=== PATIENT | female | born 1935 | race Caucasian/White ===

== ENCOUNTER 2017-07-02 08:33 | Inpatient (IN) | payer MEDICARE ==
[~2017-07-02 08:33] MED LIST: MORPHINE SULFATE 15 MG TABLET.SA PO PRN; ROPIVACAINE HCL/PF 100 MG, KETOROLAC TROMETHAMINE 30 MG, EPINEPHrine 0.2 MG in NORMAL S... IJ PRN; TRANEXAMIC ACID 1,000 MG in NORMAL SALINE 100 ML IV PRN; ceFAZolin SODIUM 1 GM VIAL IV PRN
[2017-07-02] MEDS: RINGER'S SOLUTION,LACTATED 1,000 ML IV PRN ×2 (11:00→11:55)
[2017-07-02] MEDS ORDERED: RINGER'S SOLUTION,LACTATED 1,000 ML IV ONE (13:10)
--- NOTE | 2017-07-02 14:13 | POSTOP NO ---
Date of Surgery: 07/02/17 Patient Tolerated the Procedure: Well Post Operative Diagnosis/Procedures: Cafeteria Director: Denis Michael PA-C Post-operative Diagnosis: Left knee flexion contracture with limited range of motion and arthrosis Finding: Above Procedure: Left total knee arthroplasty Estimated Blood Loss: Minimal Specimens: Bone for disposal
[2017-07-02] MEDS ORDERED: ZOLPIDEM TARTRATE 5 MG TABLET PO PRN (14:19)
[2017-07-02] MEDS ORDERED: ONDANSETRON HCL/PF 2 MG/ML VIAL IV PRN (14:19)
[2017-07-02] MEDS ORDERED: PROMETHAZINE HCL 5 MG in DEXTROSE 5 % IN WATER 50 ML IV PRN ×2 (14:19)
[2017-07-02] MEDS ORDERED: HYDROmorphone HCL 2 MG/ML VIAL IV PRN (14:19)
[2017-07-02] MEDS ORDERED: diphenhydrAMINE HCL 50 MG/ML VIAL IV PRN (14:19)
[2017-07-02] MEDS ORDERED: MAGNESIUM HYDROXIDE 30 ML UDC PO PRN (14:19)
[2017-07-02] MEDS ORDERED: MAG HYDROX/ALUMINUM HYD/SIMETH 30 ML UDC PO PRN (14:19)
[2017-07-02] MEDS ORDERED: ACETAMINOPHEN 500 MG TABLET PO PRN (14:19)
--- NOTE | 2017-07-02 14:19 | OR ---
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 Membership Counselor: Denis Michael PA-C Anesthesia: Spinal with regional block and local periarticular joint injection. Complications: None Specimens: Bone for disposal. Estimated blood loss: Minimal. Tourniquet time: 95 Minutes at 325 millimeters of mercury. Retained implants: Depuy Attune size 6 narrow left lugged cemented posterior stabilized femoral component. Size 5 fixed-bearing cemented tibial platform. 6 by 5 millimeter posterior stabilized cross-linked tibial insert. 41 millimeter medialized patella button. Indications: Mrs. Muir is a 81-year-old female who has significant valgus deformity with flexion contracture and severely limited flexion and advanced arthrosis. This patient was followed in my clinic for period of time with significant complaints of left knee pain consistent with arthritic changes. She had failed conservative measures including, but not limited to, activity modification, passage of time, medications, and other conservative measures. Patient wished to proceed with surgical treatment. The risks, benefits, and alternatives were discussed in clinic. The risks of , blood clots, bleeding, infection, nerve/tendon blood vessel/ injury, malposition of components, intraoperative fracture, postoperative limited range of motion, persistent pain, failure of components, and need for additional procedures. Patient wished to proceed consent was obtained after answering all questions. Procedure: After marking the correct extremity on the floor, the patient was taken to the operating room. A timeout was performed. IV antibiotics consisting of Ancef were administered prior to the procedure. A regional followed by spinal anesthetic was induced by anesthesia, per my request, on the operative table with all bony prominences well-padded. Holt catheter was placed, and a bump was placed under the operative side buttock. SCDs and PAPI hose were utilized on the nonoperative leg. A well-padded tourniquet was applied to the operative thigh. The operative leg was then pre-scrubbed with alcohzulema stokes prepped, and draped in a standard sterile fashion. After exsanguinating the extremity with an Esmarch bandage, the tourniquet was inflated. After marking out the anterior knee for standard incision centered over the patella, the skin was incised and dissected down to the joint retinaculum. The joint retinaculum was marked out as well as the horizontal axis of the patella, and a standard medial parapatellar arthrotomy was then made. The most proximal aspect of the quadriceps tendon and the patella tendon insertion were protected from release. A partial synovectomy was performed as well as a resection of the infrapatellar fat pad. The distal femoral fat pad proximal to the trochlea was also resected using cautery. The soft tissues were elevated off the medial aspect of the proximal tibia using a Snowden elevator ensuring that we did not transect the medial collateral ligament. Upon initial evaluation range of motion was approximately 30 degrees to 70 degrees of flexion. She had noted valgus deformity and severely limited motion. There were signs of advanced arthrosis in the medial, lateral, and patellofemoral joint spaces. There were large marginal osteophytes which were removed with a rongeur. The knee was hyperflexed and the patella was tucked laterally. Protecting the surrounding soft tissues with Homans, an entry drill was placed down the femoral canal using Whitesides line for guidance into the entry point. The intramedullary femoral alignment afua was utilized in order to cut the distal femur in 5 degrees of valgus resecting 11 millimeters of bone but was subsequently recut up to a total of 13 mm distal resection. Next the distal femur was sized to a size 6. A posterior referencing guide was utilized to place the distal femoral cutting block in 3 degrees of external rotation. This was pinned into place. The rotation was confirmed both visually and based on anatomic landmarks. The 4 in 1 cutting jig of the appropriate size was utilized in order to make all bony cuts. The angle wing was used to ensure no notching. Retractors were utilized in order to protect surrounding soft tissues. This cut did not result in any excessive notching. We then cut the box centered over the distal femur. This allowed for resection of the anterior and posterior cruciate ligaments. I then turned my attention to the preparation of the tibia. Using an extra medullary tibial alignment afua, 4 millimeters of bone was resected off the medial articular surface. This was made perpendicular to the mechanical axis of the joint with the alignment afua centered over the ankle mortise. The alignment afua was checked and was noted to be parallel to the mechanical axis, centered over the medial one third of the tibial tubercle, paralleling the anterior surface of the tibia. We then turned our attention to the remaining meniscus and soft tissues. These were removed while protecting the surrounding ligaments and soft tissues. The marginal osteophytes off the anterior, posterior, medial, lateral aspects of the femur and tibia were removed. The tibia was sized out to a size 5. Next the tibia was drilled and punched in an externally rotated position. Next the trial femur and a series of tibial inserts were utilized in order to allow for significant increased extension and maximal flexion. At this point the extension gap was still significantly smaller than the flexion gap and thus we recut the femur resecting an additional 2 mm up to the aforementioned 13 mm distal cut. After this, it was found that a 5 millimeter insert gave the best range of motion and stability at multiple flexion points as well as at near full extension there was less than 2 mm of gapping both medially and laterally. The posterior capsular release as well as a transection of the popliteal tendon was performed. This resulted in a final extension of 10 short of full. There is minimal anterior translation with the knee at 90 degrees of flexion and no signs of being able to dislocate the knee. The patella was then prepared. The initial thickness was 23 millimeters. This was reamed down to 13 millimeters parallel to the anterior surface of the patella. It was sized out to a size 41 medialized patella button. This was then drilled and trialed. Without any medial restraint the patella tracked appropriately and did not sublux or dislocate. At this point, it was felt these were the appropriate sized implants, and all trials were removed. The standard periarticular joint injection consisting of ropivacaine, Toradol, and epinephrine were injected into the periarticular joint tissues. The bony surfaces were thoroughly irrigated with a pulsatile- suction saline irrigation device. A bone plug from the prior resected anterior chamfer cut was placed into the drill hole at the distal femur. The bony surfaces were then dried in preparation for placement of the implants. The cement was vacuum mixed per the showcase maker's instructions. The cement was placed on the dry bony surfaces and posterior aspect of the implants. The implants were impacted into place, removing all extruded cement. At this point anesthesia administered tranexamic acid per protocol intravenously. The knee was placed in extension with axial loading with the trial insert while the cement cured. Once the cement cured, all remaining extruded cement was removed. The knee was placed through a range of motion with the trial insert to ensure appropriate range of motion and stability. Final range of motion was approximately 10 to 120 degrees. The knee was again thoroughly irrigated with pulsatile saline lavage. The final polyethylene insert was then impacted into place ensuring no retained soft tissues. The remaining periarticular joint injection was injected. A medium Hemovac drain was placed exiting superior laterally. The knee was then placed over a triangle and the arthrotomy was closed with interrupted #1 Vicryl after thoroughly irrigating the joint. The deep and subcutaneous tissues were closed with interrupted 0 and 3-0 Vicryl respectively. Skin was closed with a running subcutaneous 3-0 Monocryl and Prineo Dermabond dressing. 4 x 4's, Sof-Rol, and a full leg Vikash wrap were applied. All sponge, needle, blade, and instrument counts were correct prior to closing the wounds. Postoperative condition: The patient was awoken and transferred to the postanesthesia care unit in stable condition. Plan is to be admitted to the inpatient medical/surgical floor postoperatively for 24 hours of IV antibiotics , physical therapy, occupational therapy, and medical comanagement. Patient will be weightbearing as tolerated with range of motion as tolerated. DVT prophylaxis will be with SCDs, PAPI hose, and pharmacological anticoagulation. Anticipated hospital stay is approximately 1-3 days.
--- NOTE | 2017-07-02 14:41 | OR ---
Anesthesia Procedure Note - Anesthesia Procedure Note Date of Service: 07/02/17 Narrative: Vital Signs - Last Taken Temp 36.7 C 07/02/17 14:30 Pulse 84 07/02/17 14:35 Resp 16 07/02/17 14:35 BP 123/60 07/02/17 14:35 Pulse Ox 94 07/02/17 14:35 O2 Oxygen Delivery Method Nasal Cannula 07/02/17 14:38 ANESTHESIA PROCEDURE NOTE Date of Procedure: 07/02/2017 Time of procedure: 12:00.. Performed by: DIANE Shi CRNA, MSN [employer] Attendant: Marta Wolf RN. Preprocedure diagnosis: Post left total knee arthroplasty pain relief. Post procedure diagnosis: Same. Procedure: Left Adductor Canal Block. Indications: Post left total knee arthroplasty pain relief. Findings: See below. Details of the procedure: The patient was brought to OR #4 and placed in supine position. The patient's left femoral area to the knee was prepped with chlorhexidine and using ultrasound guidance the left femoral artery and nerve was identified and then followed to the level of the adductor canal. Lidocaine 1% was infiltrated to the skin of the intended injection site. Under ultrasound guidance the saphenous nerve was approached with visualization of a 2 inch shielded block needle. Once saphenous nerve was identified with proximity to the needle tip, the saphenous nerve was surrounded with 20 mL bupivacaine 0.25% with 1-200,000 epinephrine. Please see radiology/ultrasound report for details and retained images of the procedure. EBL: 0 Fluids: N/A. Specimen: N/A. Post procedure condition: The patient tolerated the procedure well. No complications were noted. Thank you for this consultation. Pj Burk CRNA, [employer], MSN
[2017-07-02] MEDS: KETOROLAC TROMETHAMINE 15 MG/ML VIAL IV SCH ×2 (15:18→21:23)
[2017-07-02] MEDS: DEXTROSE 5%-LACTATED RINGERS 1,000 ML IV PRN (15:19)
[2017-07-02] MEDS: ceFAZolin SODIUM 1 GM in DEXTROSE 5 % IN WATER 50 ML IV SCH ×4 (15:19→21:25)
[2017-07-02] MEDS: ATORVASTATIN CALCIUM 40 MG TABLET PO SCH (21:23)
[2017-07-02] MEDS: CALCIUM CARBONATE 500 MG TAB.CHEW PO SCH (21:24)
[2017-07-02] MEDS: SENNOSIDES/DOCUSATE SODIUM 1 TAB TABLET PO SCH (21:24)
[2017-07-02] MEDS: OMEGA-3 FATTY ACIDS 1 CAP CAPSULE PO SCH (21:24)
[2017-07-03] MEDS: DEXTROSE 5%-LACTATED RINGERS 1,000 ML IV PRN (00:42)
[2017-07-03] MEDS: KETOROLAC TROMETHAMINE 15 MG/ML VIAL IV SCH ×4 (02:37→20:14)
[2017-07-03] MEDS: ceFAZolin SODIUM 1 GM in DEXTROSE 5 % IN WATER 50 ML IV SCH ×2 (03:54)
[2017-07-03 05:55] LABS: Hematocrit 34.8 % (37.0-47.0); Hemoglobin 11.1 gm/dL (12.5-16.0); Mean Cell Volume 95.1 fl (78-100); Mean Corpuscular Hemoglobin 30.3 pg (27-31); Mean Corpuscular Hgb Conc 31.9 g/dl (32-36); Mean Platelet Volume 9.5 fl (6.0-9.5); Platelet Count 149 K/mm3 (150-450); Red Blood Count 3.66 M/mm3 (4.2-5.4); Red Cell Distribution Width 13.3 % (11.5-14.0); White Blood Count 7.6 K/mm3 (4.0-10.5)
[2017-07-03 06:06] LABS: Anion Gap 6.5 mmol/L (6.8-13.8); Calcium * 8.6 mg/dL (7.9-10.9); Carbon Dioxide 33.5 mmol/L (24-32.6); Estimated Creat Clear 58.4
[2017-07-03] MEDS ORDERED: LEVOTHYROXINE SODIUM 112 MCG TABLET PO SCH (07:00)
[2017-07-03] MEDS: oxyCODONE HCL/ACETAMINOPHEN 1 TAB TABLET PO PRN (07:16)
[2017-07-03] MEDS: HYDROCHLOROTHIAZIDE 25 MG TABLET PO SCH (08:34)
[2017-07-03] MEDS: CALCIUM CARBONATE 500 MG TAB.CHEW PO SCH ×2 (08:34→20:15)
[2017-07-03] MEDS: FLUoxetine HCL 20 MG CAPSULE PO SCH (08:34)
[2017-07-03] MEDS: ENALAPRIL MALEATE 5 MG TABLET PO SCH (08:34)
[2017-07-03] MEDS: MULTIVITAMINS 1 CAP CAPSULE PO SCH (08:34)
[2017-07-03] MEDS: OMEGA-3 FATTY ACIDS 1 CAP CAPSULE PO SCH ×2 (08:34→20:14)
[2017-07-03] MEDS: LORazepam 0.5 MG TABLET PO SCH (12:27)
[2017-07-03] MEDS: ENOXAPARIN SODIUM 40 MG/0.4 ML SYRG SC SCH (12:29)
--- NOTE | 2017-07-03 17:02 | PN ---
Subjective - Date and Time Seen Date: 07/03/17 Subjective Narrative: Subjective: Reports minimal pain. Was able to walking the hernandez with therapy. Pain is well-controlled. Voiding without any complications. Tolerating by mouth intake. Denies any nausea or vomiting. Denies calf pain. Slept well. Physical exam: Alert and oriented to person, place and time Left lower Extremity: Palpable dorsalis pedis pulse. Sensation grossly intact to light touch. Dressings clean and dry. Able to flex and extend ankle and toes. No excessive drainage. Calf and thigh are soft and nontender. Assessment: Postop day 1 status post left total knee arthroplasty. Plan: Due to the need for pain control, post-operative limited mobility, protection of the surgical site and joint, monitoring of the wound, and the management of chronic medical conditions, she requires continued inpatient care. Continue with physical and occupational therapy weightbearing as tolerated. Continue with anticoagulation. 24 hours postoperative prophylactic antibiotics. Pain control with goal to rely on oral medications. Continue bowel regimen. Will need 6 weeks with walker or assitive device to protect joint while ambulating during the recovery process. Discharge planning - goal was to discharge home tomorrow. Discontinue drain and Holt catheter. Continue progressive therapeutical doing stairs Objective - Vitals Vitals: Last Vital Signs Temp 37.1 C 07/03/17 14:31 Pulse 71 07/03/17 14:31 Resp 18 07/03/17 14:31 BP 111/55 07/03/17 14:31 Pulse Ox 91 07/03/17 14:31 - Abnormal Lab Findings Abnormal Lab Findings: Abnormal Lab Results 07/03/17 07/03/17 Range/Units 05:47 05:47 RBC 3.66 L (4.2-5.4) M/mm3 Hgb 11.1 L (12.5-16.0) gm/dL Hct 34.8 L (37.0-47.0) % MCHC 31.9 L (32-36) g/dl Plt Count 149 L (150-450) K/mm3 Carbon Dioxide 33.5 H (24-32.6) mmol/L Anion Gap 6.5 L (6.8-13.8) mmol/L BUN/Creatinine Ratio 39.0 H (9.0-21.6) Random Glucose 157 H (70-110) mg/dL Cauti Physician Documentation - Urinary Catheter Management Urethral (Holt) Date of Insertion: 07/02/17 Time of Insertion: 12:25 Assessment/Plan - Problems/Diagnosis (1) Acute blood loss anemia Problem: Acute (2) Status post total left knee replacement Problem: Acute (3) Anxiety Problem: Chronic (4) COPD (chronic obstructive pulmonary disease) Problem: Chronic (5) Diabetes mellitus type 2 in nonobese Problem: Chronic (6) Hyperlipidemia Problem: Chronic (7) Hypertension Problem: Chronic (8) Hypothyroid Problem: Chronic (9) Varicose veins of both lower extremities Problem: Chronic
[2017-07-03] MEDS: SENNOSIDES/DOCUSATE SODIUM 1 TAB TABLET PO SCH (20:14)
[2017-07-03] MEDS: ATORVASTATIN CALCIUM 40 MG TABLET PO SCH (20:14)
[2017-07-04] MEDS: KETOROLAC TROMETHAMINE 15 MG/ML VIAL IV SCH ×2 (03:09→09:21)
[2017-07-04] MEDS ORDERED: LEVOTHYROXINE SODIUM 125 MCG TABLET PO SCH (07:00)
[2017-07-04] MEDS: ENALAPRIL MALEATE 5 MG TABLET PO SCH (10:09)
[2017-07-04] MEDS: OMEGA-3 FATTY ACIDS 1 CAP CAPSULE PO SCH (10:09)
[2017-07-04] MEDS: HYDROCHLOROTHIAZIDE 25 MG TABLET PO SCH (10:10)
[2017-07-04] MEDS: CALCIUM CARBONATE 500 MG TAB.CHEW PO SCH (10:11)
[2017-07-04] MEDS: FLUoxetine HCL 20 MG CAPSULE PO SCH (10:11)
[2017-07-04] MEDS: MULTIVITAMINS 1 CAP CAPSULE PO SCH (10:11)
[2017-07-04 10:45] VITALS: BP 135/79
[2017-07-04] MEDS: oxyCODONE HCL/ACETAMINOPHEN 1 TAB TABLET PO PRN (12:07)
[2017-07-04] MEDS: LORazepam 0.5 MG TABLET PO SCH (12:07)
--- NOTE | 2017-07-04 13:00 | DS ---
(1) Acute blood loss anemia Problem: Acute (2) Status post total left knee replacement Problem: Acute (3) Anxiety Problem: Chronic (4) COPD (chronic obstructive pulmonary disease) Problem: Chronic (5) Diabetes mellitus type 2 in nonobese Problem: Chronic (6) Hyperlipidemia Problem: Chronic (7) Hypertension Problem: Chronic (8) Hypothyroid Problem: Chronic (9) Varicose veins of both lower extremities Problem: Chronic Description of Stay: Mrs. Muir was admitted to the floor after undergoing left total knee arthroplasty. Tolerated this well. Was admitted to the floor postoperatively for 24 hours of IV antibiotics, pain control, medical comanagement, and occupational and physical therapy. OT and PT were consulted to assist with activities of daily living and ambulation. Was made weightbearing as tolerated with range of motion as tolerated. Pain was initially controlled with IV regimen. This was transitioned to oral once tolerating a by mouth intake. Was resumed on home diet and medications. Had a Holt catheter inserted and the operating room which was discontinued on postoperative day 1. A drain was placed intraoperatively into the knee which was discontinued on postoperative day 1. Lovenox SCD and PAPI hose were utilized for DVT prophylaxis. Vital signs remained stable to the hospital course. Serial labs were obtained which showed a hemoglobin of 11.1 grams. BMP was reviewed and was stable. Physical examination throughout the hospital course showed an extremity that had sensation that was intact to light touch, palpable pulses, a benign wound, motor intact to the toes, ankle, and knee. Knee range of motion was approximately 10 degrees to 60 degrees. Once an oral pain regimen was tolerated and physical therapy goals were met, it was felt that they were stable for discharge to home. Instructions: Continue with weightbearing as tolerated and range of motion as tolerated. It is okay to shower and get the wound wet as long as there is no drainage from the wound. Do not bathe or soak the wound. If there is any drainage from the wound keep the wound clean and dry and cover with dry gauze and tape. Change every 2-3 days as needed if there is any drainage. Cover wound while showering if there is any drainage. Continue with physical therapy. Resume home diet. Report any fever over 101.5 Fahrenheit, uncontrolled pain, increased drainage, foul odor of drainage, new or increased calf pain or shortness of breath, or any other significant complaints. A 325mg dialy aspirin will be started after finishing anticoagulation if not allergic. Continue with PAPI hose on the operative extremity until instructed otherwise. No driving until instructed otherwise. Follow up in approximately 10-14 days. Procedures Performed: see notes below List Procedures: Left total knee arthroplasty Discharge Disposition: Home self care Disposition: Home self-care Condition: Good Discharge Activity: Activity as tolerated, Weight bearing Discharge Diet: General/regular food Additional Patient Instructions (free text): Out patient Physical Therapy at [facility] rehab on SundayAugust 03 at 2:00pm. Follow up with Dr. Meyer on SundayJuly 17 at 9:30am. Prescriptions (Any new or edited meds): Enoxaparin Sodium [Lovenox] 40 mg SC Q24H #7 disp.syrin oxyCODONE HCL/ACETAMINOPHEN [Percocet 5 MG/325 MG] 2 tab PO Q4H PRN #60 tablet PRN Reason: Moderate Pain (Pain Scale 4-6) Complete Home Medications List: Complete Home Medication List: Atorvastatin Calcium [Lipitor] 40 mg PO HS 07/15/12 Hydrochlorothiazide [Hydrodiuril] 25 mg PO DAILY 07/15/12 Levothyroxine Sodium [Synthroid] 112 mcg PO Q2D 07/15/12 Levothyroxine Sodium [Synthroid] 125 mcg PO Q2D 07/15/12 Benazepril HCl 10 mg PO DAILY 06/26/17 Calcium Carbonate 600 mg PO BID 06/26/17 FLUoxetine HCL [Prozac] 20 mg PO DAILY 06/26/17 LORazepam [Ativan] 0.5 mg PO DAILY@1200 06/26/17 Multivitamins [Multivitamin Aakash] 1 cap PO DAILY 06/26/17 Romney-3 Fatty Acids/Fish Oil [Fish Oil 1,000 mg Capsule] 1 each PO BID 06/26/17 Enoxaparin Sodium [Lovenox] 40 mg SC Q24H #7 disp.syrin 07/04/17 Sennosides/Docusate Sodium [Senokot-S] 2 tab PO HS tablet 07/04/17 oxyCODONE HCL/ACETAMINOPHEN [Percocet 5 MG/325 MG] 2 tab PO Q4H PRN #60 tablet 07/04/17 Amb Orders for Discharge: PT Evaluation and Treatment Facility: [facility], Location: Rehabilitation Services
[2017-07-04] MEDS: ENOXAPARIN SODIUM 40 MG/0.4 ML SYRG SC SCH (14:14)
--- NOTE | 2017-07-05 19:49 | PN ---
Subjective - Date and Time Seen Date: 07/04/17 Time: 12:15 Subjective Narrative: Patient seen and examined at bedside. She is all dressed and ready to leave and she states she is feeling well and ready to go home. Objective - Review of Systems Generalized/Overall Review: Reports: No Symptoms Reported EENTM: Reports: No Symptoms Reported Respiratory: Reports: No Symptoms Reported. Denies: Shortness of Breath Cardiac: Reports: No Symptoms Reported Abdominal: Reports: No Symptoms Reported Genitourinary Symptoms: Reports: No Symptoms Reported Musculoskeletal Complaints: Reports: Joint Pain Neurological: Reports: No Symptoms Reported Skin: Reports: No Symptoms Reported Endocrine: Reports: No Symptoms Reported Misc: All systems neg except as marked - Vitals Vitals: Last Vital Signs Temp 36.8 C 07/04/17 10:43 Pulse 78 07/04/17 10:43 Resp 16 07/04/17 10:43 BP 135/79 07/04/17 10:43 Pulse Ox 92 07/04/17 12:35 - Exam Constitutional: Present: Alert, Oriented x3, Cooperative, Well developed, Well nourished, No distress ENT Exam: Present: moist mucous membranes Respiratory: Present: decreased breath sounds Cardiovascular/Chest: Present: regular rate, rhythm, systolic murmur, edema - Trace edema in right lower extremity with chronic varicosities and chronic venous stasis, trace to +1 edema in left lower extremity with post-op surgical dressing and compression stocking in place Abdomen: Present: soft, nontender, nondistended Extremity: Present: lower extremity edema - Trace edema in right lower extremity with chronic varicosities and chronic venous stasis, trace to +1 edema in left lower extremity with post-op surgical dressing and compression stocking in place Skin Exam: Present: other - Chronic venous stasis dermatitis skin changes to bilateral lower extremities Neurologic: Present: alert Eye contact: Present: cooperative Thoughts: Present: normal thought pattern, no apparent hallucination Cauti Physician Documentation - Urinary Catheter Management Urethral (Holt) Date of Insertion: 07/02/17 Time of Insertion: 12:25 Assessment/Plan Plan Narrative: Patient stable for discharge home. She has underlying COPD and continues with daily tobacco use so it is quite likely her baseline oxygen saturation is around the upper 80s at rest and drops with ambulation. Continue post-op cares including VTE ppx and pain control per ortho. The patient was instructed to follow-up with her PCP, Dr. Moent in [place], within 1 week for a hospital follow-up and to monitor her vitals including her oxygen saturation. - Problems/Diagnosis (1) Acute blood loss anemia Problem: Acute (2) Status post total left knee replacement Problem: Acute (3) COPD (chronic obstructive pulmonary disease) Problem: Chronic (4) Tobacco abuse Problem: Chronic
== END 2017-07-04 14:31 | disposition home or self-care (01) | DRG 470 ==
LOC: MS 10:24 → EDSTATUS 15:00
PROVIDERS: ADMIT Orthopaedic Surgery; ATTEND Orthopaedic Surgery
PROC: 0SRD0J9 Replacement of Left Knee Joint with Synthetic Substitute, Cemented, Open Approach (ICD-10-PCS; principal; 2017-07-02)
DX: E03.9 Hypothyroidism, unspecified; D62 Acute posthemorrhagic anemia; I10 Essential (primary) hypertension; E11.9 Type 2 diabetes mellitus without complications; M17.12 Unilateral primary osteoarthritis, left knee; E78.5 Hyperlipidemia, unspecified; J44.9 Chronic obstructive pulmonary disease, unspecified; F17.210 Nicotine dependence, cigarettes, uncomplicated